=== PATIENT | female | born 1955 | race Caucasian/White ===

== ENCOUNTER 2020-12-01 06:05 | Emergency (ER) | payer MEDICARE, SELFPAY ==
--- NOTE | ~2020-12-01 | XR_ITS ---
EXAMINATION: XR chest 1V portable 12/01/2020 07:00 INDICATION: Left-sided chest pain PROCEDURE: AP portable chest COMPARISON: Comparison to multiple prior studies sequentially, with oldest reviewed study dated 12/2005. FINDINGS: The lungs are clear. The cardiomediastinal silhouette is within normal limits. There are no pleural effusions. There is no pneumothorax suspected. IMPRESSION: 1: NO ACUTE CARDIOPULMONARY DISEASE. Reviewed, dictated and finalized at location A. FIC CONTROL TECHNICIAN
[2020-12-01 06:10] VITALS: BP 180/92; PULSE 85; RESP 20; TEMP 36.6; O2SAT 98
--- NOTE | 2020-12-01 06:10 | ECG_ITS ---
Measurements Intervals [place] Rate: 65 P: 39 CO: 160 QRS: 3 QRSD: 97 T: 25 QT: 388 QTc: 405 Interpretive Statements SINUS RHYTHM BASELINE WANDER- V3 NORMAL ECG Electronically Signed On 12-03-2020 8:14:17 EVENT SALES REPRESENTATIVE by Pako Holland D.O.
[2020-12-01 06:30] VITALS: PULSE 75
--- NOTE | 2020-12-01 06:49 | ED.ARRPALP ---
HPI - Arrhythmia/Palpitations General Chief Complaint: Arrhythmia/Palpitations Stated Complaint: heart complications Source: patient Mode of arrival: ambulatory Limitations: no limitations History of Present Illness HPI narrative: States she woke at 3:30 am after going to bed at 10:30pm with palpations and some light chest pressure that was about a 3/10 in intensity that lasted very briefly and went up into her neck. She has had palpitations off and on since that time. MD complaint: rapid heart beat Duration: intermittent Severity: mild Context: occurred during rest Associated symptoms: denies other symptoms Related Data Home Medications Medication Instructions Recorded Confirmed aspirin 81 mg PO DAILY 12/01/20 12/01/20 atorvastatin 20 mg PO DAILY 12/01/20 12/01/20 Allergies Allergy/AdvReac Type Severity Reaction Status Date / Time Penicillins Allergy Unknown Verified 01/08/18 11:47 Review of Systems Constitutional: Constitutional: Reports no additional constitutional complaints Eyes: Eyes: Reports no additional eye complaints ENT: Reports system reviewed and no additional complaints, except as documented Cardiovascular: Cardiovascular: Reports no additional cardiovascular complaints Respiratory: Respiratory: Reports no additional respiratory complaints Gastrointestinal: Gastrointestinal: Reports no additional gastrointestinal complaints Genitourinary: Genitourinary: Reports no additional female genitourinary complaints Musculoskeletal: Musculoskeletal: Reports no additional musculoskeletal complaints Integumentary/Breasts: Skin/Breast: Reports system reviewed and no additional complaints, except as docu Neurologic: Reports system reviewed and no additional complaints, except as documented Psychiatric: Psychiatric: Reports no additional psychiatric complaints Endocrine: Endocrine: Reports no additional endocrine complaints Hematologic/Lymphatic: Hematologic/Lymphatic: Reports no additional hematologic/lymphatic complaints Allergic/Immunologic: Allergic/Immunologic: Reports no additional allergic/immunologic complaints [facility] Past Medical History Medical History Ankle fracture Hyperlipidemia Surgical History Surgical History Hip joint replacement status Family History Family History Mother Family history of cardiovascular disease Sibling Family history of arthritis Father Family history of pancreatic cancer Other Cerebrovascular accident Family history of gout Family history of malignant neoplasm Social History Social History (Updated 12/01/20 @ 06:54 by Bhargav York MD) Smoking status: Never smoker Second hand tobacco smoke exposure: Yes Alcohol intake: current Alcohol use details: light alcohol intake rarely Exam Const: General: healthy appearing and no acute distress Orientation/consciousness: patient oriented x3 HENMT: Head: normal to inspection General nose exam: Normal external nose present Face and sinus: normal facial exam Mouth: Yes Normal oral and palatal mucosa present Throat: posterior oropharynx normal Eyes: Conjunctivae: conjunctivae normal Neck: Neck: normal visual inspection Chest: Chest palpation & inspection: normal inspection of the chest Resp: Effort & Inspection: normal respiratory effort Auscultation: clear to auscultation bilaterally Cardio: Rate: regular rate Rhythm: regular rhythm GI: GI Palp: Yes Soft to palpation (nontender) Skin: General skin exam: normal color Neuro: General: patient oriented x3 and moves all extremities Extrem: General: normal to inspection Psych: Appearance: grossly normal Mental Status: mental status grossly normal Thought content: Yes Normal thought content present Course Course Emergency Course: EKG was negative, CXR and labs
[2020-12-01 06:50] LABS: Basophils Absolute Auto 0.04 K/mm3 (0.00-0.10); Basophils Percent Auto 0.7 % (0.0-1.0); Eosinophils Absolute Auto 0.18 K/mm3 (0.02-0.50); Eosinophils Percent Auto 3.1 % (1.0-6.0); Hematocrit 36.1 % (35.0-42.0); Hemoglobin 12.5 g/dL (11.7-13.8); Immature Granulocyte Absolute 0.02 K/mm3 (0.00-0.00); Immature Granulocyte Percent A 0.3 % (0.0-0.0); Lymphocytes Absolute Auto 2.01 K/mm3 (1.10-4.50); Lymphocytes Percent Auto 34.4 % (18.0-42.0); Mean Corpuscular HGB Conc 34.6 g/dL (32.0-36.0); Mean Corpuscular Hemoglobin 31.1 pg (27.0-31.0); Mean Corpuscular Volume 89.8 fL (78.0-102.0); Mean Platelet Volume 8.8 fl (9.2-11.8); Monocytes Absolute Auto 0.35 K/mm3 (0.10-0.90); Neutrophils Absolute Auto 3.3 K/mm3 (1.7-7.2); Neutrophils Percent Auto 55.5 % (50.0-70.0); Platelet Count Result 248 K/mm3 (150-420); Red Blood Count 4.02 M/mm3 (4.20-5.40); Red Cell Distribution Width 12.6 % (11.6-14.4); White Blood Count 5.9 K/mm3 (4.8-10.8)
[2020-12-01 06:51] VITALS: BP 134/78; PULSE 66; RESP 20; O2SAT 98
[2020-12-01 07:03] LABS: BNP 18 pg/mL (0-100)
[2020-12-01 07:07] LABS: D Dimer 0.38 mg/L (0.19-0.50)
[2020-12-01 07:08] LABS: Alanine Aminotransferase 21 U/L (14-59); Albumin Level 3.7 g/dL (3.4-5.0); Alkaline Phosphatase 81 U/L (46-116); Anion Gap 8 mmol/L (8-16); Aspartate Amino Transferase 13 U/L (15-37); Bilirubin,Total 0.7 mg/dL (0.00-1.00); Blood Urea Nitrogen 12 mg/dL (7-18); Calcium 9.1 mg/dL (8.5-10.1); Carbon Dioxide 25 mmol/L (21-32); Chloride 103 mmol/L (98-108); Estimated CRCL calculation 76 ml/min; Estimated Glomerular Filt Rate > 60; Glucose 92 mg/dL (70-99); Osmolality Calculated 281 mOsm/kg (285-295); Potassium 3.5 mmol/L (3.5-5.1); Sodium 136 mmol/L (136-145); Total Protein 7.1 g/dL (6.4-8.2); Troponin I 7.6 ng/L (0.00-60.4)
[2020-12-01 07:18] LABS: Magnesium 1.9 mg/dL (1.8-2.4)
[2020-12-01] MEDS: ONDANSETRON HCL ODT 4 MG TABLET PO (07:46)
[2020-12-01 07:51] VITALS: BP 148/73; PULSE 73; RESP 15; O2SAT 97
== END 2020-12-01 07:52 | disposition home or self-care (01) ==
PROVIDERS: Emergency Provider Emergency Medicine
DX: R00.2 Palpitations (principal); E78.5 Hyperlipidemia, unspecified
CPT/HCPCS: 36415; 71045; 80053; 83735; 83880; 84484; 85025; 85380; 93005; 99283; 99284; A9270

== ENCOUNTER 2021-02-21 12:37 | Outpatient (CLI) | payer MEDICARE, SELFPAY ==
--- NOTE | ~2021-02-21 | MMUS_ITS ---
EXAMINATION: MM diagnostic landon BI w deyanira, US breast LT complete HISTORY: Left breast pain TECHNIQUE: ML, MLO and craniocaudal 3-D tomosynthesis images of both breasts were performed and [facility] were [facility]. CAD analysis was submitted and interpreted. High resolution complete left breast ultrasound was performed. COMPARISON: 12/06/2019 bilateral digital screening mammogram 08/18/2016 diagnostic left digital mammogram and complete left breast ultrasound 07/28/2016 bilateral digital screening mammogram BREAST PARENCHYMAL COMPOSITION: The breasts are heterogeneously dense, which may obscure small masses . FINDINGS: MAMMOGRAPHIC FINDINGS: No suspicious mass or architectural distortion, malignant calcification, skin thickening or retractio n or significant new or developing density is detected. ULTRASOUND: 5:00 7 cm from nipple: 6.4 x 5.8 x 4.4 mm sonolucency with through transmission posterior enhancement consistent with simple cyst 6:00 6 cm from nipple: 4.9 x 4.9 x 3.9 mm simple cyst with through transmission No suspicious mass or shadowing is evident. IMPRESSION: 1. No mammographic evidence of malignancy 2. Routine mammographic screening is recommended. BI-RADS Category 2: Benign finding(s). Reviewed, dictated and finalized at location A. IMPRESSION: 1. No mammographic evidence of malignancy 2. Routine mammographic screening is recommended. BI-RADS Category 2: Benign finding(s).
== END 2021-02-21 12:38 | disposition home or self-care (01) ==
PROVIDERS: Visit Provider Obstetrics & Gynecology Gynecology
DX: N64.4 Mastodynia (principal)
CPT/HCPCS: 76641; 77062; 77066; G0279

== ENCOUNTER 2022-05-13 13:31 | Outpatient (CLI) | payer MEDICARE, MEDICAID, SELFPAY ==
--- NOTE | ~2022-05-13 | US_ITS ---
EXAMINATION: US pelvic complete w TV DATE: 05/13/2022 15:09 INDICATION: Pelvic pain. Patient is postmenopausal. Comparison:No prior studies for comparison. TECHNIQUE: Multiple transabdominal and endovaginal sonographic images of the pelvis performed. FINDINGS: The uterus measures 4.7 x 2.8 x 3.6 cm. The endometrial complex measures 1 cm. There are mu ltiple small cystic areas within the endometrium. The ovaries are not visualized. Uterine fibroid present measuring 1.9 x 1.6 x 1.6 cm. There is no free fluid in the pelvis. There are no abnormal masses seen on either side. IMPRESSION: 1. Thickened endomtrial complex. The differential diagnosis includes endometrial hyperplasia, polyp a nd carcinoma. Biopsy is recommended. Reviewed, dictated and finalized at location A. IMPRESSION: 1. Thickened endomtrial complex. The differential diagnosis includes endometria l hyperplasia, polyp and carcinoma. Biopsy is recommended.
== END 2022-05-13 13:32 | disposition home or self-care (01) ==
PROVIDERS: Visit Provider Nurse Practitioner
DX: R10.2 Pelvic and perineal pain (principal); D25.9 Leiomyoma of uterus, unspecified; R93.89 Abnormal findings on diagnostic imaging of other specified body structures
CPT/HCPCS: 76830; 76856

== ENCOUNTER 2022-06-24 14:52 | Outpatient (CLI) | payer MEDICARE, MEDICAID, SELFPAY ==
--- NOTE | ~2022-06-24 | MMUS_ITS ---
EXAMINATION: MM diagnostic landon BI w deyanira, US breast LT limited HISTORY: Pain of the lateral left breast TECHNIQUE: Craniocaudal, mediolateral, and mediolateral oblique 3-D tomosynthesis images of the breas ts were performed and synthetic 2-D images were generated. CAD analysis was submitted and interpreted . High resolution limited left breast ultrasound was performed. COMPARISON: 02/21/2021, 12/06/2019, 08/18/2016 BREAST PARENCHYMAL COMPOSITION: The breasts are heterogeneously dense, which may obscure small masses . FINDINGS: MAMMOGRAPHIC FINDINGS: There is no suspicious mass, calcification, or architectural distortion in either breast to suggest malignancy. There has been no suspicious interval change. No mammographic correlate is identified for the patient's reported left breast pain ULTRASOUND: There is a 4 mm cyst at the 6:00 location of the breast. No suspicious cystic or solid mass is identi fied. IMPRESSION: 1. No specific mammographic or sonographic correlate is identified for the patient's reported left br east pain. Further evaluation at this time should be based on clinical assessment. Continued follow-u p physical examination is recommended. 2. Recommend routine screening mammography in one year. BI-RADS Category 2: Benign finding(s). Reviewed, dictated and finalized at location A. IMPRESSION: 1. No specific mammographic or sonographic correlate is identified for the shahida ent's reported left breast pain. Further evaluation at this time should be base d on clinical assessment. Continued follow-up physical examination is recommend ed. 2. Recommend routine screening mammography in one year. BI-RADS Category 2: Benign finding(s).
== END 2022-06-24 14:53 | disposition home or self-care (01) ==
PROVIDERS: Visit Provider Nurse Practitioner
DX: N64.4 Mastodynia (principal)
CPT/HCPCS: 76642; 77062; 77066; G0279

== ENCOUNTER 2022-07-07 00:54 | Day surgery (SDC) | payer MEDICARE, MEDICAID, SELFPAY ==
[2022-07-03 08:51] VITALS: BMI 30.7
--- NOTE | 2022-07-03 09:15 | PC.NURSE ---
Report to the Outpatient Waiting Room, entrance under the green pavilion located off [facility], at time _1100_ on date 07/07/22__. OR Time: _1300_. YOU WILL BE NOTIFIED ON Thursday07/04/22 AFTERNOON IF YOUR SURGERY TIME IS CHANGED - You and your visitor will be asked to self-screen and do not enter if you have any COVID symptoms. - Only one visitor and NO children visitors are allowed at this time. - The patient visitor is requested to leave or wait in car when not with patient due to restrictions. - A mask is required within the hospital. Patients may have clear liquids (water, carbonated beverages, clear teas, apple juice) until 3 hours prior to surgery with a maximum of 20 ounces. - No food from midnight until time of surgery - Take the following medications with a SIP of water the morning of surgery: _TOPIRAMATE Medications to discontinue per physician N/A Date to take last dose___N/A Please no make-up, nail albanian, hairspray, perfume, deodorant, or body powder the day of surgery. No jewelry (including any body piercings) or valuables the day of surgery, leave them at home. Please take a shower or bath the night before, or the morning of, surgery with an antibacterial soap. Wear comfortable, loose fitting clothing. - Jewelry must be removed prior to entering the operating room. Rings and piercings that are not removed may be cut off. - The hospital will not accept responsibility for valuables. - Please leave all valuables, including medications, at home the day of surgery. If you are going home after surgery, a licensed wheat combine driver must drive you home. - NO public transportation without another adult. - We recommend that an adult stay with you for 24 hours following discharge. - We also recommend that you do not drive, make important decision, drink alcoholic beverages, or take any drugs that were not prescribed by your health care provider for at least 24 hours after your discharge time. Follow any additional instructions given to you from your surgeon. If you or anyone in your household have experienced Covid symptoms in the past week, please notify your surgeon or the nurse liaison at the phone number below for possible testing. Telephone instructions given to _ARLENE__and asked if any additional questions and then verbalized understanding. Patient advised to call surgeon office or pre surgery nurse liaison [phone] if any additional questions.
--- NOTE | 2022-07-07 08:09 | P.HP_ITS ---
History of Present Illness History of Present Illness Consent: Risks, benefits, and alternatives have been discussed and questions answered. Patient agrees to proceed with procedure. Chief complaint: thickened endometrial lining Narrative: Anjelica Vang is a 66 year old female with complaints of pelvic pain. Patient had undergone pelvic ultrasound which was otherwise normal but did reveal a 1cm thickened endometrial complex with a very small uterus measuring 4.7cm. It was recommended to proceed with D&C hysteroscopy. Risks of infection, bleeding, and perforation were reviewed. Possible pathology was discussed. Patient voices understanding and agrees to proceed. Review of Systems Constitutional: Constitutional: Reports fatigue and Reports headache(s) Gastrointestinal: Gastrointestinal: Reports heartburn Genitourinary: Genitourinary: Reports pelvic pain (Intermittent and dull aching pain) [facility] Past Medical History Medical History (Updated 07/07/22 @ 08:14 by Sunita Guerrero MD) Ankle fracture Hyperlipidemia Surgical History Surgical History (Updated 07/07/22 @ 08:12 by Sunita Guerrero MD) Hip joint replacement status Bilateral hip replacements History of loop electrical excision procedure (LEEP) 2013 Family History Family History Mother Family history of cardiovascular disease Sibling Family history of arthritis Father Family history of pancreatic cancer Other Cerebrovascular accident Family history of gout Family history of malignant neoplasm Social History Social History (Updated 12/01/20 @ 06:54 by Bhargav York MD) Smoking status: Never smoker Second hand tobacco smoke exposure: Yes Alcohol intake: current Alcohol use details: light alcohol intake rarely Substance use: current Substance use type: does not use Living arrangements: alone Spiritual care concerns: No Meds Home Medications and Allergies Home Medications Medication Instructions Recorded Confirmed Type atorvastatin 20 mg tablet 20 mg PO DAILY 12/01/20 07/03/22 History topiramate 25 mg tablet 25 mg PO BID 07/03/22 07/03/22 History Allergies Allergy/AdvReac Type Severity Reaction Status Date / Time Penicillins Allergy Unknown Verified 01/08/18 11:47 Exam Const: General: healthy appearing and alert Orientation/consciousness: patient oriented x3 GI: GI Palp: Yes Soft to palpation, No Tenderness to palpation present (GI) and No Palpable mass present : External Female Exam: normal external appearance Speculum Exam - Vagina: normal vaginal discharge and vagina atrophic Speculum Exam - Cervix: normal appearance of the cervix Bimanual exam- vagina & uterus: uterine size normal and consistency normal Bimanual Exam- Adnexa, other: normal adnexae and No adnexal tenderness Neuro: General: patient oriented x3 Assessment and Plan Assessment and plan (1) Thickened endometrium: Code(s): R93.89 - Abnormal findings on diagnostic imaging of other specified body structures Status: Acute Assessment and Plan: Plan to proceed with D&C hysteroscopy
--- NOTE | 2022-07-07 08:09 | WPDHPUPDATE1 ---
History and Physical Update Update Date/Time: 07/07/22 08:09 History and Physical has been reviewed, including an updated exam of the patient. There are NO changes in the patient's condition. Risks, benefits, and alternatives have been discussed and questions answered. Patient agrees to proceed with procedure.
--- NOTE | 2022-07-07 08:13 | P.PNAN_ITS ---
Anes - Initial Pre Proc Eval Procedure: Operation Date: 07/07/22 12:45 Proposed Procedures p Hysteroscopy Dilation and Curettage - Sunita Guerrero MD Date/Time: 07/07/22 08:13 Surgeon: Sunita Guerrero MD Pre Op Diagnosis: thickened endometrial lining Patient Data Age: 66 Gender: F Height: 1.7 m Weight: 89 kg Allergies Allergy/AdvReac Type Severity Reaction Status Date / Time Penicillins Allergy Intermediate Hives Verified 07/07/22 11:17 Home Medications Medication Instructions Recorded Confirmed Type atorvastatin 20 mg tablet 20 mg PO DAILY 12/01/20 07/07/22 History topiramate 25 mg tablet 25 mg PO BID 07/03/22 07/07/22 History Patient hx anesthesia problems: none Family hx anesthesia problems: none Results Review: All pre-operative results and documents have been reviewed as part of the pre- operative evaluation. [facility] Past Medical History Medical History (Updated 07/07/22 @ 08:14 by Sunita Guerrero MD) Ankle fracture Hyperlipidemia Surgical History Surgical History (Updated 07/07/22 @ 08:12 by Sunita Guerrero MD) Hip joint replacement status Bilateral hip replacements History of loop electrical excision procedure (LEEP) 2013 Family History Family History Mother Family history of cardiovascular disease Sibling Family history of arthritis Father Family history of pancreatic cancer Other Cerebrovascular accident Family history of gout Family history of malignant neoplasm Social History Social History (Updated 12/01/20 @ 06:54 by Bhargav York MD) Smoking status: Never smoker Second hand tobacco smoke exposure: Yes Alcohol intake: current Alcohol use details: light alcohol intake rarely Substance use: current Substance use type: does not use Living arrangements: alone Spiritual care concerns: No Anes - Eval Final PreProcedure Day of Procedure 07/07/22 08:13 Patient weight: obese Heart: regular rate and rhythm Lungs: clear to auscultation and normal air movement Airway: Mallampati scale class II Neurological: alert and oriented Last oral intake: >/= 8 hours ASA classification: II Emergent: no Anesthetic plan: proceed Anesthesia type and monitoring: general GIVS and LMA Results Review: All pre-operative results and documents have been reviewed as part of the pre- operative evaluation. Informed Consent: The patient's anesthetic plan and its attendant risks and benefits were discussed with the patient/family/POA. Questions were solicited and answers provided to the satisfaction of the patient/family/POA.
[2022-07-07] MEDS: ACETAMINOPHEN 500 MG TABLET 1000 MG PO (11:25)
[2022-07-07] MEDS: LACTATED RINGERS 1,000 ML 30 ML IV CONT (11:30)
[2022-07-07 11:36] VITALS: BP 132/68; PULSE 61; RESP 16; TEMP 36.2; O2SAT 100
[2022-07-07] MEDS: LIDOCAINE HCL 1% PF 30 ML VIAL INFILTRATE (12:14)
--- NOTE | 2022-07-07 12:37 | W.PM.PROC2 ---
Procedure Note - Detailed Date of Procedure 07/07/22 Pre-op Diagnosis thickened endometrial lining Post-op Diagnosis Same Procedure Performed D&C hysteroscopy with MyoSure resection of polyps Surgeon Sunita Guerrero MD Anesthesia MAC and Local Findings Cervix is very atypical appearing after previous surgery. The cervix is very scarred externally. Uterus very small sounding to 4.5cm. Cavity with 2 polyps and scar tissue. Description of Procedure The patient is taken to the operating room and placed under anesthesia in the dorsal lithotomy position. She was prepped and draped in the usual sterile fashion. [place] speculum was placed in the vagina and the cervix grasped on the anterior lip with a tenaculum the cervical os is very scarred and os Finders are used to open the external and internal os. The uterus is then sounded to 4.5cm. The cervix is serially dilated with Hegar to an 8. The diagnostic hysteroscope was placed and initially was in a false passage. Backing the scope up the true passage was noted above the false passage and is able to be visualized. What appears to be polyps are noted. The MyoSure scope and device are opened and placed. Under direct visualization the polyps are excised. There is vertical scar tissue noted on the left portion of the cavity. This is also excised. The remainder of the endometrium appears atrophic. The hysteroscope was removed and the sharp curette used to curette the endometrium until a good uterine cry was noted in all areas. Minimal if any material was obtained consistent with the visual appearance. All instruments are removed. Sponge, needle, and instrument counts are correct per the OR staff. Patient is awakened from anesthesia and taken to recovery in stable condition. Estimated Blood Loss 5 Drains No Packing No Pathology Yes (Endometrial shavings and curettings) Complications No immediate complications Condition Stable Disposition PACU
[2022-07-07 12:38] VITALS: BP 135/60; PULSE 63; RESP 16; O2SAT 97
[2022-07-07 13:00] VITALS: BP 141/54; PULSE 57; RESP 16; O2SAT 98
[2022-07-07 13:20] VITALS: BP 179/65; PULSE 45; RESP 16
== END 2022-07-07 13:31 | disposition home or self-care (01) ==
PROVIDERS: Visit Provider Obstetrics & Gynecology Gynecology
PROC: 0U5B8ZZ Destruction of Endometrium, Via Natural or Artificial Opening Endoscopic (ICD-10-PCS; CPT 58563; principal; 2022-07-07 12:45)
DX: N84.0 Polyp of corpus uteri (principal); E78.5 Hyperlipidemia, unspecified
CPT/HCPCS: 58558; 88305; A9270; J2704; J3010; J7030; J7120

== ENCOUNTER 2023-01-25 13:30 | Emergency (ER) | payer MEDICARE, MEDICAID, SELFPAY ==
[2023-01-25] VITALS (17 sets, daily range): BP systolic 114–151; BP diastolic 65–79; PULSE 56–72; RESP 18–20; TEMP 36.1–36.9; O2SAT 94–99
--- NOTE | ~2023-01-25 | XR_ITS ---
EXAMINATION: XR chest 2V DATE: 01/25/2023 14:06 INDICATION: Upper left chest pain. Asthma with chronic cough. TECHNIQUE: PA and lateral views of the chest were obtained. COMPARISON: Chest radiograph dated 12/01/2020 FINDINGS: Unchanged mild streaky and linear atelectasis at the lingula. No other airspace opacities, pulmonary edema, pleural effusion or pneumothorax. The cardiomediastinal silhouette is normal. Mild S-shaped cu rvature of the thoracic spine. Chronic mild anterior wedging of a a few mid and lower thoracic verteb ral bodies. IMPRESSION: 1. Mild lingular atelectasis. Reviewed, dictated and finalized at location A.
--- NOTE | 2023-01-25 13:33 | ECG_ITS ---
Measurements Intervals [place] Rate: 61 P: 52 TN: 159 QRS: 19 QRSD: 92 T: 44 QT: 400 QTc: 403 Interpretive Statements SINUS RHYTHM BORDERLINE T WAVE ABNORMALITY- ANTERIOR LEADS BASELINE ARTIFACT- V6 BORDERLINE ECG COMPARED TO ECG 12/01/2020 06:20:33 NO SIGNIFICANT CHANGES Electronically Signed On 01-25-2023 20:44:54 CDT by Pako Holland D.O.
[2023-01-25] MEDS: ASPIRIN 81 MG CHEWABLE TABLET 324 MG PO (13:49)
--- NOTE | 2023-01-25 13:50 | ED.CHESTPAIN ---
HPI - Chest Pain General Chief Complaint: Chest Pain Stated Complaint: chest pain Time Seen by Provider: 01/25/23 13:33 Source: patient and RN notes reviewed Mode of arrival: ambulatory Limitations: no limitations History of Present Illness HPI narrative: patient states that she has been having intermittent chest pain. 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 She said that she has had the pain for the last 5 days and actually was 2 days ago when it was more concerning that she wanted to have it evaluated but she had to work. She says the pain is in her left chest seems to go up to her neck over to her left shoulder. She denies any associated diaphoresis, shortness of breath, nausea vomiting. She had this once before a few years ago and came into the emergency room to be evaluated and was negative at that time. Her only risk factor is hyperlipidemia. complaint: chest pain Onset (ago): week(s) (1) Timing of current episode: episodic Prior episodes: No Onset: during rest Pain location: left chest Pain radiation: left arm and jaw/teeth Severity: moderate Pain scale (0-10): 5 Quality: aching and dull Relieving factors: nothing Exacerbating factors: nothing Treatment prior to arrival: none Risk Factors Coronary artery disease risk factors: none Thoracic aortic dissection risk factors: none Related Data Home Medications Medication Instructions Recorded Confirmed atorvastatin 20 mg tablet 20 mg PO DAILY 12/01/20 01/25/23 topiramate 25 mg tablet 25 mg PO BID 07/03/22 01/25/23 Allergies Allergy/AdvReac Type Severity Reaction Status Date / Time Penicillins Allergy Intermediate Hives Verified 07/07/22 11:17 Review of Systems Review of Systems: All systems reviewed & are unremarkable except as noted in HPI and below Constitutional: Constitutional: Denies excessive sweating ENT: Denies dizziness Respiratory: Respiratory: Denies dyspnea Gastrointestinal: Gastrointestinal: Denies nausea and Denies vomiting ON LICENSE OF [facility] Past Medical History Medical History (Updated 01/25/23 @ 15:01 by Bhargav Trinidad MD) Ankle fracture Asthma Hyperlipidemia Surgical History Surgical History Hip joint replacement status Bilateral hip replacements History of loop electrical excision procedure (LEEP) 2013 Family History Family History Mother Family history of cardiovascular disease Sibling Family history of arthritis Father Family history of pancreatic cancer Other Cerebrovascular accident Family history of gout Family history of malignant neoplasm Social History Social History Smoking status: Never smoker Second hand tobacco smoke exposure: Yes Alcohol intake: current Alcohol use details: light alcohol intake rarely Substance use: current Substance use type: does not use Living arrangements: alone Spiritual care concerns: No Exam Const: General: healthy appearing, no acute distress and alert Nutritional Appearance: well nourished Orientation/consciousness: patient oriented x3 Limitations: no limitations HENMT: Head: normal to inspection Ears: external ears normal Face/Nose/Sinus: Normal external nose present Face and sinus: normal facial exam Mouth: Yes moist mucous membranes Eyes: Conjunctivae: conjunctivae normal Pupils: Equal, round and reactive pupils present EOM: EOMs intact bilaterally Neck: Neck: normal visual inspection Chest: Chest palpation & inspection: normal inspection of the chest and no tenderness Resp: Effort & Inspection: normal respiratory effort Auscultation: clear to auscultation bilaterally Cardio: Rate: regular rate Rhythm: regular rhythm GI: GI Palp: Yes Soft to palpation and No Tenderness to palpation present (GI) Auscultation: normal bowel sounds Back/Spine/Pelvis
[2023-01-25 14:35] LABS: Basophils Absolute Auto 0.05 K/mm3 (0.00-0.10); Basophils Percent Auto 0.7 % (0.0-1.0); Eosinophils Absolute Auto 0.14 K/mm3 (0.02-0.50); Hematocrit 38.5 % (35.0-42.0); Hemoglobin 13.2 g/dL (11.7-13.8); Immature Granulocyte Absolute 0.02 K/mm3 (0.00-0.00); Immature Granulocyte Percent A 0.3 % (0.0-0.0); Lymphocytes Absolute Auto 2.59 K/mm3 (1.10-4.50); Lymphocytes Percent Auto 36.6 % (18.0-42.0); Mean Corpuscular HGB Conc 34.3 g/dL (32.0-36.0); Mean Corpuscular Hemoglobin 31.3 pg (27.0-31.0); Mean Corpuscular Volume 91.2 fL (78.0-102.0); Mean Platelet Volume 9.2 fl (9.2-11.8); Monocytes Absolute Auto 0.44 K/mm3 (0.10-0.90); Monocytes Percent Auto 6.2 % (2.0-11.0); Neutrophils Absolute Auto 3.8 K/mm3 (1.7-7.2); Neutrophils Percent Auto 54.2 % (50.0-70.0); Platelet Count Result 254 K/mm3 (150-420); Red Blood Count 4.22 M/mm3 (4.20-5.40); Red Cell Distribution Width 13.2 % (11.6-14.4); White Blood Count 7.1 K/mm3 (4.8-10.8)
[2023-01-25 14:46] LABS: Partial Thromboplastin Time 23.4 SEC (23.90-30.70); Prothrombin Time 10.7 Seconds (9.50-12.10)
[2023-01-25 14:50] LABS: Alanine Aminotransferase 25 U/L (14-59); Albumin Level 3.8 g/dL (3.4-5.0); Alkaline Phosphatase 83 U/L (46-116); Anion Gap 10 mmol/L (8-16); Aspartate Amino Transferase 16 U/L (15-37); Bilirubin,Total 0.9 mg/dL (0.00-1.00); Blood Urea Nitrogen 18 mg/dL (7-18); Calcium 9.3 mg/dL (8.5-10.1); Carbon Dioxide 26 mmol/L (21-32); Chloride 106 mmol/L (98-108); Estimated Glomerular Filt Rate 52; Glucose 101 mg/dL (70-99); Osmolality Calculated 295 mOsm/kg (285-295); Potassium 3.9 mmol/L (3.5-5.1); Sodium 142 mmol/L (136-145); Total Protein 7.3 g/dL (6.4-8.2); Troponin I 5.5 ng/L (0.00-60.4)
== END 2023-01-25 15:15 | disposition home or self-care (01) ==
PROVIDERS: Emergency Provider Emergency Medicine
DX: R07.89 Other chest pain (principal); E78.5 Hyperlipidemia, unspecified
CPT/HCPCS: 36415; 71046; 80053; 84484; 85025; 85610; 85730; 93005; 99283; A9270

== ENCOUNTER → 2023-09-21 13:26 | Outpatient (CLI) | payer MEDICARE, SELFPAY ==
--- NOTE | ~2023-09-21 | DEXA_ITS ---
Bone Density Report Name: COOPER TUCKER Age: 67 Sex: Female Ethnicity: White Date of : 1955 Indication: monitoring treatment; prior fracture; postmenopausal Referring Provider: TITO, DRAION Study: Bone densitometry was performed. Exam Date: September 21, 2023 Accession number: [id number] Bone Density: Region BMD T-score Z-score Classification AP Spine (L1-L4) 1.077 0.3 2.2 Normal World Health Organization criteria for BMD impression classify patients as: Normal (T-score at or above -1.0), Osteopenia (T-score between -1.0 and -2.5), or Osteoporosis (T-score at or below -2.5). Previous Exams: Region Exam Age BMD T-score BMD Change BMD Change Date g/cm2 vs Baseline vs Previous AP Spine(L1-L4) 09/21/2023 67 1.077 0.3 0.095* 0.095* 04/13/2015 59 0.982 -0.6 *Denotes significance at 95% confidence level, LSC for AP Spine = 0.022 g/cm2 Clinical Information Provided by Patient: Has had a low trauma fracture Is being treated for osteoporosis Has used the following medications: Boniva (i.e. ibandronate), Vitamin D Patient maximum height was 67.5 Menopause Age: 42 Drinks caffeinated beverages Onset of menses at age 14 Number of children 0 Impression: The patient has normal bone mass. The patient has risk factors, including: previous fracture. No significant bone loss was observed. Discussion: PATIENT UNDER TREATMENT WITH NO SIGNIFICANT BMD LOSS SINCE LAST EXAM. In an untreated patient, BMD typically declines with age. A lack of decline or gain is usually a sign that treatment is efficacious and fracture risk is reduced. It is important to ask patients whether they are taking their medications and to encourage continued and appropriate compliance with their osteoporosis therapies to reduce fracture risk. It is also important to review their risk factors and encourage appropriate calcium and vitamin D intakes, exercise, fall prevention and other lifestyle measures. Follow-Up: Consider a repeat BMD and Vertebral Fracture Assessment (VFA) exam in 2 years or sooner if medically necessary, to reassess this patient's status. Reported by: TEO on 09/21/2023 1:50:00 PM. Reviewed, dictated and finalized at location AKarri FELICIANO
--- NOTE | ~2023-09-21 | MM_ITS ---
EXAMINATION: MM screening landon BI w deyanira HISTORY: Screening TECHNIQUE: Craniocaudal and mediolateral oblique 3-D tomosynthesis images were obtained and synthetic 2-D images were generated. CAD analysis was submitted and interpreted. COMPARISON: Comparison to multiple prior studies sequentially, with oldest reviewed study dated 07/28. BREAST PARENCHYMAL COMPOSITION: The breasts are heterogeneously dense, which may obscure small masses . FINDINGS: There is no evidence of suspicious mass, calcification, or architectural distortion to sugg est malignancy in either breast. There has been no suspicious interval change. IMPRESSION: 1. No mammographic evidence of malignancy. 2. Recommend routine screening mammography in one year. BI-RADS Category 1: Negative Reviewed, dictated and finalized at location A. CLIMBING TEAM MEMBER
== END ==
PROVIDERS: PCP Nurse Practitioner; Visit Provider Nurse Practitioner
DX: Z12.31 Encounter for screening mammogram for malignant neoplasm of breast (principal); M85.88 Other specified disorders of bone density and structure, other site
CPT/HCPCS: 77063; 77067; 77080

== ENCOUNTER 2024-07-21 07:43 | Outpatient (CLI) | payer MEDICARE, SELFPAY ==
--- NOTE | ~2024-07-21 | MMUS_ITS ---
EXAMINATION: MM diagnostic landon LT w deyanira, US breast LT complete HISTORY: Left breast pain TECHNIQUE: Additional 3-D tomosynthesis images of the left breast were performed and synthetic 2-D im ages were generated. CAD analysis was submitted and interpreted. High resolution complete left breast ultrasound was performed. COMPARISON: Comparison to multiple prior studies sequentially, with oldest reviewed study dated 01/2016. BREAST PARENCHYMAL COMPOSITION: Not dense: There are scattered areas of fibroglandular density. FINDINGS: MAMMOGRAPHIC FINDINGS: There are no suspicious masses, calcifications or architectural distortion in the left breast to sugg est malignancy. ULTRASOUND: Complete US of all 4 quadrants of the left breast/s and retroareolar region was reviewed. At 2:00, 7 cm from the nipple there is a 1 cm cyst. At 11:00, 5 cm from the nipple there is a 5 mm cyst. No susp icious masses to suggest malignancy. IMPRESSION: 1. No evidence for malignancy in the left breast. 2. Routine yearly screening mammogram and regular clinical breast examination are recommended. BI-RADS Category 2: Benign finding(s). Reviewed, dictated and finalized at location B. IMPRESSION: 1. No evidence for malignancy in the left breast. 2. Routine yearly screening mammogram and regular clinical breast examination a re recommended. BI-RADS Category 2: Benign finding(s).
== END 2024-07-21 07:44 | disposition home or self-care (01) ==
PROVIDERS: PCP Nurse Practitioner; Visit Provider Nurse Practitioner
DX: R92.8 Other abnormal and inconclusive findings on diagnostic imaging of breast (principal)
CPT/HCPCS: 76641; 77061; 77065; G0279

== ENCOUNTER 2024-09-27 00:45 | Day surgery (SDC) | payer MEDICARE, SELFPAY ==
[2024-09-14 14:57] VITALS: BMI 31.3
[2024-09-27 12:24] VITALS: BP 123/73; PULSE 84; RESP 18; TEMP 36.1; O2SAT 99
[2024-09-27] MEDS: LACTATED RINGERS 1,000 ML 150 ML IV CONT (12:42)
--- NOTE | 2024-09-27 12:45 | SUR.PREOP ---
Pt. complaining of nausea. Requesting medication. Orders received from JESS Quesada for Zofran 4mgIV push once.
[2024-09-27] MEDS: ONDANSETRON INJ 4 MG/2 ML VIAL IV PUSH (12:48)
--- NOTE | 2024-09-27 13:44 | WPDANESEPPF ---
Anes - Initial Pre Proc Eval Procedure: Operation Date: 09/27/24 13:30 Proposed Procedures p Colonoscopy - Julio Burgos MD Date/Time: 09/27/24 13:44 Surgeon: Julio Burgos MD Pre Op Diagnosis: personal hx colon polyps Patient Data Age: 68 Gender: F Height: 1.7 m Weight: 88.9 kg Last Vital Signs Temp 97 F L 09/27/24 12:24 Pulse 84 09/27/24 12:24 Resp 18 09/27/24 12:24 BP 123/73 09/27/24 12:24 Pulse Ox 99 09/27/24 12:24 O2 Del Method Room Air 09/27/24 12:24 Allergies Allergy/AdvReac Type Severity Reaction Status Date / Time Penicillins Allergy Intermediate Hives Verified 09/27/24 12:23 Home Medications Medication Instructions Recorded Confirmed Type atorvastatin 20 mg tablet 20 mg PO DAILY 12/01/20 09/27/24 History topiramate 25 mg tablet 25 mg PO BID 07/03/22 09/27/24 History buspirone 5 mg tablet 5 mg PO DAILY 09/14/24 09/27/24 History ECG: SR 61 Patient hx anesthesia problems: none Family hx anesthesia problems: none Results Review: All pre-operative results and documents have been reviewed as part of the pre-operative evaluation. [facility] Past Medical History Medical History Ankle fracture Asthma Hyperlipidemia Surgical History Surgical History Hip joint replacement status Bilateral hip replacements History of loop electrical excision procedure (LEEP) 2014 Family History Family History Mother Family history of cardiovascular disease Sibling Family history of arthritis Father Family history of pancreatic cancer Other Cerebrovascular accident Family history of gout Family history of malignant neoplasm Social History Social History Smoking status: Never smoker Second hand tobacco smoke exposure: Yes Alcohol intake: current Alcohol use details: light alcohol intake rarely Substance use: current Substance use type: does not use Living arrangements: alone Spiritual care concerns: No Anes - Eval Final PreProcedure Day of Procedure 09/27/24 13:44 Patient weight: obese Heart: regular rate and rhythm Lungs: clear to auscultation Neurological: alert and oriented Last oral intake: >/= 8 hours ASA classification: II Emergent: yes Anesthetic plan: proceed Anesthesia type and monitoring: general GIVS Results Review: All pre-operative results and documents have been reviewed as part of the pre-operative evaluation. Informed Consent: The patient's anesthetic plan and its attendant risks and benefits were discussed with the patient/family/POA. Questions were solicited and answers provided to the satisfaction of the patient/family/POA.
--- NOTE | 2024-09-27 13:56 | PM.HPGS ---
History of Present Illness History of Present Illness Consent: Risks, benefits, and alternatives have been discussed and questions answered. Patient agrees to proceed with procedure. Chief complaint: personal hx colon polyps Narrative: Anjelica Vang is a 68 year old female with last colonoscopy 5 years ago, had polyp 10 years ago Review of Systems Review of Systems: All systems reviewed & are unremarkable except as noted in HPI and below PMFSH Past Medical History Medical History (Updated 09/27/24 @ 13:59 by Julio Burgos MD) Ankle fracture Asthma Colon polyp Hyperlipidemia Surgical History Surgical History Hip joint replacement status Bilateral hip replacements History of loop electrical excision procedure (LEEP) 2013 Family History Family History Mother Family history of cardiovascular disease Sibling Family history of arthritis Father Family history of pancreatic cancer Other Cerebrovascular accident Family history of gout Family history of malignant neoplasm Social History Social History Smoking status: Never smoker Second hand tobacco smoke exposure: Yes Alcohol intake: current Alcohol use details: light alcohol intake rarely Substance use: current Substance use type: does not use Living arrangements: alone Spiritual care concerns: No Meds Home Medications and Allergies Home Medications Medication Instructions Recorded Confirmed Type atorvastatin 20 mg tablet 20 mg PO DAILY 12/01/20 09/27/24 History topiramate 25 mg tablet 25 mg PO BID 07/03/22 09/27/24 History buspirone 5 mg tablet 5 mg PO DAILY 09/14/24 09/27/24 History Allergies Allergy/AdvReac Type Severity Reaction Status Date / Time Penicillins Allergy Intermediate Hives Verified 09/27/24 12:23 Vital Signs Vital Signs - 24 hr 09/27/24 12:24 Temperature 97 F L Pulse Rate 84 Respiratory Rate 18 Blood Pressure 123/73 Pulse Oximetry 99 Oxygen Delivery Room Air Exam Const: General: comfortable and no acute distress HENMT: Face/Nose/Sinus: Normal nares present Eyes: General: appearance normal, both eyes and all related structures Neck: Neck: no JVD Resp: Auscultation: clear to auscultation bilaterally Cardio: Rate: regular rate Rhythm: regular rhythm GI: Inspection: non-distended GI Palp: Yes Soft to palpation Skin: General skin exam: normal color Neuro: General: gait normal Speech: normal speech Extrem: General: normal to inspection Psych: Mental Status: mental status grossly normal Assessment and Plan Assessment and plan (1) Colon polyp: Code(s): K63.5 - Polyp of colon Status: Acute Assessment and Plan: colonoscopy
[2024-09-27 14:21] VITALS: BP 104/79; PULSE 81; RESP 18; O2SAT 96
[2024-09-27 14:31] VITALS: BP 113/90; PULSE 80; RESP 23; O2SAT 100
[2024-09-27 14:41] VITALS: BP 130/70; PULSE 68; RESP 18; O2SAT 100
== END 2024-09-27 14:53 | disposition home or self-care (01) ==
PROVIDERS: Visit Provider Internal Medicine Gastroenterology
PROC: 0DJD8ZZ Inspection of Lower Intestinal Tract, Via Natural or Artificial Opening Endoscopic (ICD-10-PCS; CPT 45378; principal; 2024-09-27 13:30)
DX: Z12.11 Encounter for screening for malignant neoplasm of colon (principal); D12.2 Benign neoplasm of ascending colon; K64.8 Other hemorrhoids; K57.30 Diverticulosis of large intestine without perforation or abscess without bleeding; E78.5 Hyperlipidemia, unspecified; J45.909 Unspecified asthma, uncomplicated; E66.9 Obesity, unspecified; Z68.30 Body mass index [BMI] 30.0-30.9, adult; Z98.890 Other specified postprocedural states; Z80.0 Family history of malignant neoplasm of digestive organs; Z82.49 Family history of ischemic heart disease and other diseases of the circulatory system
CPT/HCPCS: 45385; 88305; J2003; J2405; J2704; J7120

== ENCOUNTER 2025-02-15 10:17 | Outpatient (CLI) | payer MEDICARE, SELFPAY ==
--- NOTE | ~2025-02-15 | MMUS_ITS ---
EXAMINATION: MM diagnostic [facility] BI w deyanira, US breast LT complete HISTORY: Left breast pain TECHNIQUE: Additional 3-D tomosynthesis images of the breasts were performed and synthetic 2-D images were generated. CAD analysis was submitted and interpreted. High resolution complete left breast ult rasound was performed. COMPARISON: Comparison to multiple prior studies sequentially, with oldest reviewed study dated 12/06. BREAST PARENCHYMAL COMPOSITION: Not dense: There are scattered areas of fibroglandular density. FINDINGS: MAMMOGRAPHIC FINDINGS: There are no suspicious masses, calcifications or architectural distortion in either breast to sugges t malignancy. ULTRASOUND: Complete US of all 4 quadrants of the left breast/s and retroareolar region was reviewed. At 2:00, 7 cm from the nipple there is a 1 cm cyst. At 11:00, 3 cm from the nipple there is a 5 mm cyst. No susp icious masses in the left breast to suggest malignancy. IMPRESSION: 1. No evidence for malignancy in either breast. 2. Routine yearly screening mammogram and regular clinical breast examination are recommended. BI-RADS Category 2: Benign finding(s). Reviewed, dictated and finalized at location A. IMPRESSION: 1. No evidence for malignancy in either breast. 2. Routine yearly screening mammogram and regular clinical breast examination a re recommended. BI-RADS Category 2: Benign finding(s).
--- OUTSIDE RECORDS SUMMARY | 2025-02-15 11:40 | XMS_ITS | Encounter Summary ---
Author Organization [facility] Address [address] [place] [address] Care Team Providers Care Optics Manufacturing Technician Name Role Phone Unavailable Primary Care Provider Unavailabl e Encounter Details Date Type Department Care Team (Late st Contact Info) Description 04/23/2019 Abstract [facility]FL CONVERSION [address] [place] [address] , Generic Conversion, Social History Tobacco Use Types Packs/Day Years Used Date Smoking Tobacco: Never Assessed Comments Unknown Sex and Gender Information Value Date Recorded Sex Assigned at Not on file Legal Sex Female 5:48 PM MANAGER HEALTH Gender Identity Not on file Sexual Orientation Not on file documented as of this encounter Plan of Treatment Not on file documented as of this encounter Visit Diagnoses Not on filedocumented in this encounter
--- OUTSIDE RECORDS SUMMARY | 2025-02-15 11:40 | XMS_ITS | Referral Summary ---
Author Organization [facility] Address [address] [place] [address] Care Team Providers Care Hr Administrative Assistant Name Role Phone Favian Quiroz MD Primary Care Provider Encounters Date Type Department Care Team Description 12/26/2024 Telephone [facility] at the [address] [place] [address] Favian Quiroz MD Medical Question/Miscellaneous from Last 3 Months Allergies Active Allergy Reactions Criticality Noted Date Comments Penicillins Hives,Rash Reaction: Hives, Skin Rash, , Reaction: Rash, Medications busPIRone (BUSPAR) 5 mg tablet TAKE 1 TABLET BY MOUTH 3 TIMES A DAY NEEDED (ANXIETY). 90 tablet 3 Active ergocalciferol (VITAMIN D) 50,000 unit capsule 1 capsule (50,000 Units total) once a week 3 Active ibandronate (BONIVA) 150 mg tablet 4 Active topiramate (TOPAMAX) 25 mg tablet TAKE 1 TABLET BY MOUTH TWICE A DAY 180 tablet 2 4 Active acetaminophen (TYLENOL) 500 mg tablet Take 1 tablet (500 mg total) by mouth every 4 (four) hours as needed 4 Active ibuprofen 200 mg tab/cap Take 1-2 tablet/capsu le (200-400 mg total) by mouth every 6 (six) hours as needed 4 Active lidocaine (LIDODERM) 5 % Place 1 patch on the skin daily 4 Active ondansetron ODT (ZOFRAN-ODT) 4 mg disintegrating tablet Take 1 tablet (4 mg total) by mouth every 6 (six) hours as needed 4 Active atorvastatin (LIPITOR) 20 mg tablet TAKE 1 TABLET BY MOUTH EVERY DAY 90 tablet 4 Active Active Problems Problem Noted Date Diagnosed Date Left parietal scalp hematoma 06/14/2024 Mild intermittent asthma 01/23/2023 Family history of cerebral aneurysm 11/20/2020 Overview (11/20/2020): Patient's mother and 2 siblings with history of cerebral aneurysm. Check MRI of the brain. Personal history of colonic polyps 02/04/2019 Overview (02/04/2019): 5mm polyp in splenic flexure (02/04/2019) Dr. Brunner HIREN (obstructive sleep apnea) 01/12/2019 Migraine with aura 06/27/2015 Assessment & Plan (12/22/2023 5:16 PM JAVA PROJECT MANAGER): Managed with low-dose Topamax. Assessment & Plan (02/11/2023 9:47 PM CDT): On topiramate prophylaxis. Variants of migraine 06/27/2015 Pure hypercholesterolemia 04/01/2014 Overview (02/19/2017): HYPERLIPIDEMIA NEC/NOS Assessment & Plan (12/22/2023 5:16 PM JAVA PROJECT MANAGER): Target LDL less than 100. Continue current diet and atorvastatin. Check CMP, CBC and FLP. Assessment & Plan (02/11/2023 9:47 PM CDT): Target LDL less than 100. Continue current diet and atorvastatin. RTC in 3-4 months for Medicare wellness visit. Atopic rhinitis 04/01/2014 Overview (02/19/2017): ALLERGIC RHINITIS NOS Trochanteric bursitis 04/01/2014 Overview (02/19/2017): Trochanteric bursitis Resolved Problems Problem Noted Date Diagnosed Date Resolved Date Migraine 11/14/2015 01/12/2019 Overview (02/19/2017): Migraine without status migrainosus, not intractable, unspecified migraine type Hyperlipidemia 06/27/2015 01/12/2019 Overweight 04/01/2014 05/26/2017 Overview (02/19/2017): OVERWEIGHT Immunizations Immunization Administration Dates Next Due COVID-19 mRNA (PixSpree) 0.3 m L (30 mcg) vaccine (12 years and up) 10/13/2023 Flucelvax Influenza Quad 09/21/2018 Influenza, Quad, Adjuvantate d, Intramuscular 11/18/2021 Influenza, Quadrivalent, Hig h Dose, Preservative Free, Intrr 09/24/2022 Influenza, Quadrivalent, Spl it, Preservative Free, Intradermal 11/14/2015 Influenza, Quadrivalent, Spl it, Preservative Free, Intramuscular 11/20/2020,10/07/2019 Influenza, Trivalent, IM (MDV) 11/24/2012 Influenza, Unspecified 10/13/2023,09/16/2018,11/2016 Pfizer SARS-CoV-2 Monovalent Vaccination (12+ Yrs) PURPLE 02/27/2021,02/14/2021 Pneumococcal Conjugate Pcv20 12/22/2023 Pneumococcal Polysaccharide PPV23 05/30/2021 Tdap 06/14/2024 Social History Tobacco Use Types Packs/Day Years Used Date Smoking Tobacco: Never Smokeless Tobacco: Never Tobacco Cessation:Counseling Given: Not Answered Alcohol Use Standard Drinks/Week Comments Yes 0 (1 standard drink = 0.6 oz pur e alcohol) AUDIT-C Answer Date Recorded Q1: How often do you have a drink containing alc ohol? 2-4 times a month 12/22/2023 Q2: How many drinks containi ng alcohol do you have on a typical day when you are drinking? 5 or 6 12/22/2023 Q3: How often do you have si x or more drinks on one occasion? 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 Not on file Not on file Last Filed Vital Signs Vital Sign Reading Time Taken Comments Blood Pressure 144/72 07/11/2024 4:08 PM CDT Pulse 75 07/11/2024 4:08 PM CDT Temperature 37 C (98.6 F) 07/11/2024 4:08 PM CDT Respiratory Rate 20 07/11/2024 4:08 PM CDT Oxygen Saturation 98% 07/11/2024 4:08 PM CDT Inhaled Oxygen Concentration - - Weight 90.7 kg (200 lb) 07/11/2024 4:08 PM CDT Height 168.9 cm (5' 6.5 ) 07/11/2024 4:08 PM CDT Body Mass Index 31.8 07/11/2024 4:08 PM CDT Plan of Treatment Not on file Procedures Procedure Name Priority Date/Time Associated Diagnosis Comments COLONOSCOPY Routine 09/27/2024 3:55 PM JAVA PROJECT MANAGER from Last 3 Months or Most Recently Relevant to Health Maintenance Results * COLONOSCOPY (09/27/2024 3:55 PM JAVA PROJECT MANAGER) Scribed Colonoscopy Normal Historical Provider MD HEALTH MAINTENANCE Final Result from Last 3 Months or Most Recently Relevant to Health Maintenance Insurance MEDICARE IDPA MEDICARE IDMO Care Teams Hr Administrative Assistant Relationship Specialty Start Date End Date Favian Quiroz MD [facility] [address] Ana ZARCO [address] [place] [id number] PCP - General 02/13/17
--- OUTSIDE RECORDS SUMMARY | 2025-02-15 11:40 | XMS_ITS | Clinical Summary ---
Author Organization [facility] Address [address] [place] [address] Care Team Providers Care Shipboard Intelligence Analyst Name Role Phone Favian Quiroz MD Primary Care Provider Source Comments [facility],non-owned Affiliates and Associated Physician Practices is amultiple site organization consisting of ambulatory clinics and hospital sitesin [place], [place], [place] and [place]. This disclosure is being madepursuant to the Care Everywhere program and may not contain all information available regarding this patient. Last updated 18.[facility] Allergies Active Allergy Reactions Criticality Noted Date Comments Penicillins Unknown 06/14/2024 Medications * Be aware that medications may not be up to date on this document. Alwaysverify current medications with the patient. Medication Sig Dispensed Refills Start Date End Date Status acetaminophen (Tylenol) 500 MG tablet Take 1 (one) tablet by mouth every 4 hours as needed for Fever or Pain Maximum allowable Acetaminophen amount = 4 Grams (4000 mg) / 24 hours. 30 tablet 06/14/2024 Active lidocaine (Lidoderm) 5 % patch Apply 1 (one) patch to skin once daily Apply patch to most painful area and remove after 12 hours. May reapply a new patch 12 hours later. 10 patch 06/14/2024 Active ibuprofen (Motrin) 200 MG tablet Take 1 (one) tablet to 2 (two) tablets by mouth every 6 hours as needed for Pain 30 tablet 06/14/2024 Active ondansetron, disintegrating, (Zofran ODT) 4 MG tablet Take 1 (one) tablet by mouth every 6 hours as needed for Nausea/Vomiting Allow tablet to dissolve on the tongue 10 tablet 06/14/2024 Active Active Problems Problem Noted Date Diagnosed Date Left parietal scalp hematoma 06/14/2024 Immunizations Name Administration Dates Next Due TDAP (7yrs+) 06/14/2024 Social History Tobacco Use Types Packs/Day Years Used Date Smoking Tobacco: Never Smokeless Tobacco: Never Tobacco Cessation:Counseling Given: Not Answered Alcohol Use Standard Drinks/Week Comments Yes 0 (1 standard drink = 0.6 oz pur e alcohol) occ AUDIT-C Answer Date Recorded Q1: How often do you have a drink containing alc ohol? 2-4 times a month 06/14/2024 Q2: How many drinks containi ng alcohol do you have on a typical day when you are drinking? 1 or 2 06/14/2024 Q3: How often do you have si x or more drinks on one occasion? Less than monthly 06/14/2024 Sex and Gender Information Value Date Recorded Sex Assigned at Not on file Gender Identity Not on file Sexual Orientation Not on file Last Filed Vital Signs Vital Sign Reading Time Taken Comments Blood Pressure 130/82 06/14/2024 7:33 AM CDT Pulse 130 06/14/2024 7:33 AM CDT Temperature 36.6 C (97.8 F) 06/14/2024 2:33 AM CDT Respiratory Rate 19 06/14/2024 7:33 AM CDT Oxygen Saturation 94% 06/14/2024 7:33 AM CDT Inhaled Oxygen Concentration - - Weight 81.6 kg (180 lb) 06/14/2024 2:33 AM CDT Height 170.2 cm (5' 7 ) 06/14/2024 2:33 AM CDT Body Mass Index 28.19 06/14/2024 2:33 AM CDT Plan of Treatment Health Maintenance Due Date Last Done Comments BONE DENSITY TESTING 1955 COLOGUARD (AGES 45-75) - COLON CA SCREENING [address] COLONOGRAPHY - COLON CA SCREENING 1955 FIT - COLON CA SCREENING 1955 FLEX SIG - COLON CA SCREENING 1955 LIPID TESTING 1955 MAMMOGRAM 1955 HEPATITIS C SCREENING 11/25/1973 PNEUMOCOCCAL VACCINE 50+ (1 of 2 - PCV) 1974 ZOSTER VACCINE (1 of 2) 2005 Respiratory Syncytial Virus (RSV) Vaccine Pt: or over 60 yrs (1 - Risk 60-74 years 1-dose series) 2015 COVID-19 VACCINE ( season) 2024 10/13/2023, 11/18/2021, 02/27/2021, Additional history exists INFLUENZA VACCINE (#1) 2024 , 11/18/2021, 11/20/2020, Additional history exists DEPRESSION SCREENING 11/16/2024 MEDICARE AWV CALENDAR YEAR 2024 COLONOSCOPY - COLON CA SCREENING 02/04/2029 02/04/2019 Colorectal Cancer Screening 02/04/2029 DTAP/TDAP/TD VACCINES (2 - Td or Tdap) 06/14/2034 06/14/2024 HEPATITIS B VACCINE Aged Out No longe r eligible based on patient's age to complete this topic HIB VACCINE Aged Out No longer eligi ble based on patient's age to complete this topic HPV VACCINE Aged Out No longer eligi ble based on patient's age to complete this topic MENINGOCOCCAL (Group B) VACCINE SHARED DECISION-MAKING Aged Out No longer eligible based on patient's age to complete this topic MENINGOCOCCAL GROUPS A/C/Y/W VACCINE Aged Out No longer eligible based on patient's age to complete this topic Care Teams Shipboard Intelligence Analyst Relationship Specialty Start Date End Date Favian Quiroz MD [facility] [address] Perez [address] [place] [address] PCP - General 07/14/22
--- OUTSIDE RECORDS SUMMARY | 2025-02-15 11:40 | XMS_ITS | Encounter Summary ---
Author Organization [facility] Healthcare Address [address] [place] [address] Care Team Providers Care Automatic Profile Shaper Operator Name Role Phone Favian Quiroz MD Primary Care Provider [phone] Reason for Visit * Diagnostic Imaging (Routine) - Closed Specialty Diagnoses / Procedures Referred By Contac t Referred To Contact Procedures Breast Imaging Diagnostic Outside Reference Priya Euceda MD PhD [address] [id number] [place] [address] Phone: tel: fax: Referral ID Status Reason Start Date Expiration Date Visits Re quested Visits Authorized [id number] Closed 10/06/2022 11/05/2023 1 1 Encounter Details Date Type Department Care Team (Late st Contact Info) Description 08/11/2016 Hospital Encounter 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 2-4 times a month 12/22/2023 1:22 PM Maura Arrieta MA Q2: How many drinks containing alcohol do you have on a typical day when you are drinking? 5 or 6 12/22/2023 1:22 PM Maura Arrieta MA Q3: How often do you have six or more drinks on one occasion? Weekly 12/22/2023 1:22 PM Maura Arrieta MA documented as of this encounter Plan of Treatment Not on file documented as of this encounter Procedures Procedure Name Priority Date/Time Associated Diagnosis Comments BREAST IMAGING MG DIAGNOSTIC OUTSIDE REFERENCE Routine 08/11/2016 12:00 AM CDT documented in this encounter Results * Breast Imaging Diagnostic Outside Reference (08/11/2016 12:00 AM CDT) Impressions [facility] - 10/06/2022 3:18 PM LUNCH COUNTER MANAGER These images are for Reference purposes only and have not been reviewed by [facility]. There will be no report generated by a [facility] Radiologist. Narrative [facility] - 10/06/2022 3:18 PM LUNCH COUNTER MANAGER EXAMINATION: Images For Reference Purposes Only us Priya Euceda MD PhD IMG MAMMO PROCEDURES Final Result [facility] documented in this encounter Visit Diagnoses Not on filedocumented in this encounter Care Teams Automatic Profile Shaper Operator Relationship Specialty Start Date End Date Favian Quiroz MD [address] [place] [address] [address] [place] [address] PCP - General 06/24/16 02/12/17 documented as of this encounter
--- OUTSIDE RECORDS SUMMARY | 2025-02-15 11:40 | XMS_ITS | Encounter Summary ---
Author Organization [facility] Healthcare Address [address] [place] [address] Care Team Providers Care Platen Press Operator Apprentice Name Role Phone Favian Quiroz MD Primary Care Provider [phone] Reason for Visit * Diagnostic Imaging (Routine) - Closed Specialty Diagnoses / Procedures Referred By Contac t Referred To Contact Diagnoses Breast pain, left Procedures Breast Imaging Screening Outside Reference Priya Euceda MD PhD [address] [facility] [address] [id number] [place] [address] Phone: tel: fax: Referral ID Status Reason Start Date Expiration Date Visits Re quested Visits Authorized [id number] Closed 10/06/2022 11/05/2023 1 1 Encounter Details Date Type Department Care Team (Late st Contact Info) Description 07/28/2016 Hospital Encounter [facility] [address] [place] [address] [phone] Social History Tobacco Use Types Packs/Day Years [...] on file Legal Sex Female 7:32 AM PRODUCT DEVELOPMENT Gender Identity Not on file Sexual Orientation Not on file 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 There will be no report generated by a [facility] Radiologist. Narrative [facility] - 10/06/2022 3:17 PM PRODUCT DEVELOPMENT EXAMINATION: Images For Reference Purposes Only us Priya Euceda MD PhD IMG MAMMO PROCEDURES Final Result [facility] documented in this encounter Visit Diagnoses Not on filedocumented in this encounter Care Teams Platen Press Operator Apprentice Relationship Specialty Start Date End Date Favian Quiroz MD [facility] [address] [place] [address] PCP - General 06/24/16 02/12/17 documented as of this encounter
--- OUTSIDE RECORDS SUMMARY | 2025-02-15 11:40 | XMS_ITS | Encounter Summary ---
Author Organization [facility] Healthcare Address [address] [place] [address] Care Team Providers Care Pan Tank Worker Name Role Phone Favian Quiroz MD Primary Care Provider [phone] Reason for Visit * Diagnostic Imaging (Routine) - Closed Specialty Diagnoses / Procedures Referred By Contac t Referred To Contact Procedures Breast Imaging Diagnostic Outside Reference Priya Euceda MD PhD [address] [id number] [place] [address] Phone: tel: fax: Referral ID Status Reason Start Date Expiration Date Visits Re quested Visits Authorized [id number] Closed 10/06/2022 11/05/2023 1 1 Encounter Details Date Type Department Care Team (Late st Contact Info) Description 02/21/2021 12:05 AM CDT Hospital Encounter [facility] [address] [place] [address] [phone] Social History Tobacco Use Types Packs/Day Years [...] on file Legal Sex Female 7:32 AM LAP WINDING MACHINE OPERATOR Gender Identity Not on file Sexual Orientation Not on file 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 There will be no report generated by a [facility] Radiologist. Narrative [facility] - 10/06/2022 11:14 AM LAP WINDING MACHINE OPERATOR EXAMINATION: Images For Reference Purposes Only us Priya Euceda MD PhD IMG MAMMO PROCEDURES Final Result [facility] documented in this encounter Visit Diagnoses Not on filedocumented in this encounter Care Teams Pan Tank Worker Relationship Specialty Start Date End Date Favian Quiroz MD [facility] [address] [place] [address] PCP - General 02/13/17 documented as of this encounter
--- OUTSIDE RECORDS SUMMARY | 2025-02-15 11:40 | XMS_ITS | Encounter Summary ---
Author Organization [facility] Healthcare Address [address] [place] [address] Care Team Providers Care Fire Investigation Manager Name Role Phone Favian Quiroz MD Primary Care Provider [phone] Reason for Visit * Diagnostic Imaging (Routine) - Closed Specialty Diagnoses / Procedures Referred By Contac t Referred To Contact Procedures Breast Imaging US Outside Reference Priya Euceda MD PhD [address] [id number] [place] [address] Phone: tel: fax: Referral ID Status Reason Start Date Expiration Date Visits Re quested Visits Authorized [id number] Closed 10/06/2022 11/05/2023 1 1 Encounter Details Date Type Department Care Team (Late st Contact Info) Description 02/21/2021 Hospital Encounter [facility] [address] [place] [address] [phone] Social History Tobacco Use Types Packs/Day Years [...] on file Legal Sex Female 7:32 AM CANCER GENETICS ASSISTANT Gender Identity Not on file Sexual Orientation Not on file 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 Not on file Not on file documented as of this encounter Functional Status * Audit-C Score Answer Date of Assessment Author 7 12/22/2023 1:22 PM Maura Arrieta MA * Question Answer Date of [...] Priority Date/Time Associated Diagnosis Comments BREAST IMAGING US OUTSIDE REFERENCE Routine 02/21/2021 12:00 AM CDT documented in this encounter Results * Breast Imaging US Outside Reference (02/21/2021 12:00 AM CDT) Impressions [facility] - 10/06/2022 11:13 AM CANCER GENETICS ASSISTANT These images are for Reference purposes only and have not been reviewed by [facility]. There will be no report generated by a [facility] Radiologist. Narrative [facility] - 10/06/2022 11:13 AM CANCER GENETICS ASSISTANT EXAMINATION: Images For Reference Purposes Only us Priya Euceda MD PhD IMG MAMMO PROCEDURES Final Result [facility] documented in this encounter Visit Diagnoses Not on filedocumented in this encounter Care Teams Fire Investigation Manager Relationship Specialty Start Date End Date Favian Quiroz MD [address] [place] [address] [address] [place] [address] PCP - General 02/13/17 documented as of this encounter
--- OUTSIDE RECORDS SUMMARY | 2025-02-15 11:40 | XMS_ITS | Clinical Summary ---
Author Organization [facility] Address [address] [place], [address] [address] Phone Care Team Providers Care Forest Aide Name Role Phone Sunita Guerrero MD Unavailable [phone] Favian Quiroz MD Primary Care Provider [phone] Allergies Active Allergy Reactions Criticality Noted Date Comments Penicillins Hives,Rash 04/13/2018 Medications FLUoxetine (PROZAC) 10 MG Capsule TK ONE C PO D 3 9 Active aspirin EC 81 MG Tablet Delayed Response Take 81 mg by mouth daily. Active atorvastatin (LIPITOR) 20 MG Tablet Take 20 mg by mouth daily. Active busPIRone (BUSPAR) 5 MG Tablet Take 5 mg by mouth 3 times daily. Active nortriptyline (PAMELOR) 10 MG Capsule Take 10 mg by mouth nightly. Active ALBUTEROL IN take 2 Puffs by inhalation as needed. Active Family History Medical History Relation Name Comments Coronary Artery Disease Brother Cancer Father pancreatic Stroke Mother Cancer Paternal Cousin breast Relation Name Status Comments Brother Father Mother Paternal Cousin Social History Tobacco Use Types Packs/Day Years Used Date Smoking Tobacco: Never Smokeless Tobacco: Never Alcohol Use Standard Drinks/Week Comments Yes 6 (1 standard drink = 0.6 oz pur e alcohol) Comments Unknown Sex and Gender Information Value Date Recorded Sex Assigned at Not on file Legal Sex Female 9:14 PM CDT Gender Identity Not on file Sexual Orientation Not on file Occupation Industry Job Start Date Job End Date retired Not on file Not on file Not on file Last Filed Vital Signs Vital Sign Reading Time Taken Comments Blood Pressure 138/75 02/04/2019 12:00 PM CDT Pulse 71 02/04/2019 12:00 PM CDT Temperature 36 C (96.8 F) 02/04/2019 12:00 PM CDT Respiratory Rate 21 02/04/2019 12:00 PM CDT Oxygen Saturation 98% 02/04/2019 12:00 PM CDT Inhaled Oxygen Concentration - - Weight 87.1 kg (192 lb) 01/25/2019 11:00 AM CDT Height 170.2 cm (5' 7 ) 01/25/2019 11:00 AM CDT Body Mass Index 30.07 01/25/2019 11:00 AM CDT Plan of Treatment Health Maintenance Due Date Last Done Comments DEXA Bone Density 1955 Hepatitis C Virus (HCV) Screening 1955 Mammogram 1955 TdaP Immunization 1955 Cologuard 2005 Immunochemical Fecal Occult Blood 2005 Pneumococcal Immunization (5 0+ years) (1 of 1 - PCV) 2005 Zoster Immunization (1 of 2) 2005 Colonoscopy 02/05/2024 02/04/2019 Colorectal Cancer Screening 02/05/2024 Influenza Immunization (#1) 2024 11/14/2015 SARS-COV-2 Immunization (1 - season) 2024 Respiratory Syncytial Virus (RSV) Immunization (Adult) (1 - 1-dose 75+ series) 2030 02/04/2019 Hepatitis B Immunization Aged Out No longer eligible based on patient's age to complete this topic Meningococcal Immunization (ACWY) Aged Out No longer eligible based on patient's age to complete this topic Rotavirus Immunization Aged Out No lo nger eligible based on patient's age to complete this topic Insurance on file Care Teams Forest Aide Relationship Specialty Start Date End Date Favian Quiroz MD [facility] [address] [place] [address] PCP - General Adult Medicine 01/18/19 Sunita Guerrero MD [address] [place] [address] Obstetrics & Gynecology 01/12/18
--- OUTSIDE RECORDS SUMMARY | 2025-02-15 11:40 | XMS_ITS | Encounter Summary ---
Author Organization [facility] Healthcare Address [address] [place] [address] Care Team Providers Care Clay Roaster Name Role Phone Favian Quiroz MD Primary Care Provider Reason for Visit * Diagnostic Imaging (Routine) - Closed Specialty Diagnoses / Procedures Referred By Contac t Referred To Contact Procedures Breast Imaging Screening Outside Reference Priya Euceda MD PhD [address] [id number] [place] [address] Phone: tel: fax: Referral ID Status Reason Start Date Expiration Date Visits Re quested Visits Authorized [id number] Closed 10/06/2022 11/05/2023 1 1 Encounter Details Date Type Department Care Team (Late st Contact Info) Description 12/06/2019 Hospital Encounter [facility] [address] [place] [address] [phone] Social History Tobacco Use Types Packs/Day Years [...] on file Legal Sex Female 7:32 AM MEDICAL LEADER Gender Identity Not on file Sexual Orientation Not on file 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 Not on file Not on file documented as of this encounter Functional Status * Audit-C Score Answer Date of Assessment Author 7 12/22/2023 1:22 PM MEDICAL LEADER Alessio Richards MA * Question Answer Date of Assessment [...] BREAST IMAGING MG SCREENING OUTSIDE REFERENCE Routine 12/06/2019 12:00 AM MEDICAL LEADER documented in this encounter Results * Breast Imaging Screening Outside Reference (12/06/2019 12:00 AM MEDICAL LEADER) Impressions [facility] - 10/06/2022 11:13 AM MEDICAL LEADER These images are for Reference purposes only and have not been reviewed by [facility]. There will be no report generated by a [facility] Radiologist. Narrative [facility] - 10/06/2022 11:13 AM MEDICAL LEADER EXAMINATION: Images For Reference Purposes Only us Priya Euceda MD PhD IMG MAMMO PROCEDURES Final Result [facility] documented in this encounter Visit Diagnoses Not on filedocumented in this encounter Care Teams Clay Roaster Relationship Specialty Start Date End Date Favian Quiroz MD [address] [place] [address] [address] Ana [address] [place] [id number] PCP - General 02/13/17 documented as of this encounter
--- OUTSIDE RECORDS SUMMARY | 2025-02-15 11:40 | XMS_ITS | Encounter Summary ---
Author Organization [facility] Healthcare Address [address] [place] [address] Care Team Providers Care Meal Grinder Tender Name Role Phone Favian Quiroz MD Primary Care Provider [phone] Reason for Visit * Diagnostic Imaging (Routine) - Closed Specialty Diagnoses / Procedures Referred By Contac t Referred To Contact Procedures Breast Imaging Diagnostic Outside Reference Priya Euceda MD PhD [address] [id number] [place] [address] Phone: tel: fax: Referral ID Status Reason Start Date Expiration Date Visits Re quested Visits Authorized [id number] Closed 10/06/2022 11/05/2023 1 1 Encounter Details Date Type Department Care Team (Late st Contact Info) Description 08/18/2016 Hospital Encounter 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 There will be no report generated by a [facility] Radiologist. Narrative RAD_[facility] - 10/06/2022 3:18 PM AIRCRAFT MAINTENANCE INSTRUCTOR EXAMINATION: Images For Reference Purposes Only us Priya Euceda MD PhD IMG MAMMO PROCEDURES Final Result [facility] documented in this encounter Visit Diagnoses Not on filedocumented in this encounter Care Teams Meal Grinder Tender Relationship Specialty Start Date End Date Favian Quiroz MD [address] [place] [address] [address] Ana [address] [place] [id number] PCP - General 06/24/16 02/12/17 documented as of this encounter
--- OUTSIDE RECORDS SUMMARY | 2025-02-15 11:40 | XMS_ITS | Clinical Summary ---
Author Organization [facility] Address [facility] [place] [address] Care Team Providers Care Hospitality Aide Name Role Phone Unavailable Primary Care Provider Unavailabl e Social History Tobacco Use Types Packs/Day Years Used Date Smoking Tobacco: Never Assessed Comments Unknown Sex and Gender Information Value Date Recorded Sex Assigned at Not on file Legal Sex Female 5:48 PM MEDICAL EDITOR Gender Identity Not on file Sexual Orientation Not on file Last Filed Vital Signs Vital Sign Reading Time Taken Comments Blood Pressure - - Pulse - - Temperature - - Respiratory Rate - - Oxygen Saturation - - Inhaled Oxygen Concentration - - Weight 87.1 kg (192 lb) 08/29/2015 2:39 PM CDT Height 170.2 cm (5' 7 ) 08/29/2015 2:39 PM CDT Body Mass Index 30.07 08/29/2015 2:39 PM CDT Plan of Treatment Health Maintenance Due Date Last Done Comments Colorectal Cancer Screening Colonoscopy (10 Years) 1955 Hepatitis C 1973 DTaP, Tdap and Td Vaccines ( 1 - Tdap) 1974 Mammogram Screening 1995 Zoster Vaccines (1 of 2) 2005 Dexa Scan (General) 2020 Pneumococcal Vaccine: 65+ Ye ars (1 of 1 - PCV) 2020 COVID-19 Vaccine ( - 2023-2 5 season) 2024 RSV Immunization or 60+ Years (1 - 1-dose 75+ series) 2030 Meningococcal B Vaccine Aged Out No l onger eligible based on patient's age to complete this topic Meningococcal Vaccine Aged Out No francis shlomo eligible based on patient's age to complete this topic RSV Immunizations Under 20 Months Aged Out No longer eligible based on patient's age to complete this topic
--- OUTSIDE RECORDS SUMMARY | 2025-02-15 11:40 | XMS_ITS | Clinical Summary ---
Author Organization [facility] Address [address] [place] [address] Care Team Providers Care Flake Cutter Operator Name Role Phone Favian Quiroz MD Primary Care Provider [phone] Allergies Active Allergy Reactions Criticality Noted Date [...] 06/27/2015 Assessment & Plan (12/22/2023 5:16 PM COMPANY PILOT): Managed with low-dose Topamax. Assessment & Plan (02/11/2023 9:47 PM CDT): On topiramate prophylaxis. Variants of migraine 06/27/2015 Pure hypercholesterolemia 04/01/2014 Overview (02/19/2017): HYPERLIPIDEMIA NEC/NOS Assessment & Plan (12/22/2023 5:16 PM COMPANY PILOT): Target LDL less than 100. Continue current [...] 01/12/2019 Overweight 04/01/2014 05/26/2017 Overview (02/19/2017): OVERWEIGHT Encounters Date Type Department Care Team Description 12/26/2024 Telephone [facility] [address] [place] [phone] Favian Quiroz MD Medical Question/Miscellaneous from Last 3 Months Immunizations Immunization Administration Dates Next Due COVID-19 mRNA (PFIZER) 0.3 m L (30 mcg) vaccine (12 [...] 12/22/2023 Pneumococcal Polysaccharide PPV23 05/30/2021 Tdap 06/14/2024 Surgical History Surgery Date Site/Laterality Comments TOTAL HIP ARTHROPLASTY Bilateral Family History Medical History Relation Name Comments Coronary artery disease Brother 1 Coronary artery disease Brother 3 Pancreatic cancer Father Cancer -pa ncreatic; Cause of : Cancer -pancreatic Asthma Mother Asthma; Coronary artery disease Mother Chance nary artery disease; Cause of : Coronary artery disease Stroke Mother Stroke; Asthma Sister 1 Asthma; Rheum arthritis Sister 2 Rheumatoid a rthritis; Relation Name Status Comments Brother 1 Alive Brother 2 Alive Brother 3 Alive Father Mother (Age 87) Sister 1 Sister 2 Social History Tobacco Use Types Packs/Day Years [...] on file Legal Sex Female 7:32 AM COMPANY PILOT Gender Identity Not on file Sexual Orientation Not on file 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 file Not on file Not on file Obstetrics History Last Filed Vital Signs Vital Sign Reading [...] 07/11/2024 4:08 PM CDT Plan of Treatment Health Maintenance Due Date Last Done Comments Breast Cancer Screening-Mammogram 1955 Hepatitis C Screening 1955 Osteoporosis Screening-Bone Density Scan 1955 Hepatitis B Screening 1973 Zoster Vaccine (1 of 2) 2005 Covid-19 Vaccine (2023-2 5 season) 2024 10/13/2023, 11/18/2021, 02/27/2021, Additional history exists Influenza Vaccine (#1) 2024 , 09/24/2022, 11/18/2021, Additional history exists Depression Screening 12/22/2024 12/22/2023, 02/10/2023, 01/21/2022, Additional history exists Fall Risk Assessment 12/22/2024 12/22/2023, 02/10/2023, 01/21/2022, Additional history exists Well Visit 65+ 12/22/2024 12/22/2023, 06/2022, 11/20/2020, Additional history exists Colon Cancer Screening-Colonoscopy 09/27/2029 09/27/2024, 02/04/2019, 10/10/2013 DTaP/Tdap/Td Vaccine (2 - Td or Tdap) 06/14/2034 06/14/2024 Pneumococcal vaccine 65+ Completed 12/22/2023, 05/16 Colon Cancer Screening-CT Colonography Discontinued 09/27/2024, 02/04/2019, 10/10/2013 Colon Cancer Screening-DNA Stool Discontinued 09/27/2024, 02/04/2019, 10/10/2013 Colon Cancer Screening-FIT Discontinued 09/27, 02/04/2019, 10/10/2013 Colon Cancer Screening-Sigmoidoscopy Discontinued 09/27/2024, 02/04/2019, 10/10/2013 Procedures Procedure Name Priority Date/Time Associated Diagnosis Comments COLONOSCOPY Routine 09/27/2024 3:55 PM COMPANY PILOT from Last 3 Months or Most Recently Relevant to Health Maintenance Results * COLONOSCOPY (09/27/2024 3:55 PM COMPANY PILOT) Scribed Colonoscopy Normal Historical Provider HEALTH MAINTENANCE Final Result from Last 3 Months or Most Recently Relevant to Health Maintenance Insurance MEDICARE IDPA MEDICARE IDPA Care Teams Flake Cutter Operator Relationship Specialty Start Date End Date Favian Quiroz MD [address] [place] [address] [address] [place] [address] [facility] - General 02/13/17
== END 2025-02-15 10:18 | disposition home or self-care (01) ==
PROVIDERS: PCP Emergency Medicine; Referring Provider Nurse Practitioner; Visit Provider Emergency Medicine
DX: N64.4 Mastodynia (principal)
CPT/HCPCS: 76641; 77062; 77066; G0279